=== PATIENT | female | born 1990 | race Two or more races ===

== ENCOUNTER 2024-05-31 10:28 | Emergency (ER) | payer OTHER ==
[~2024-05-31] VITALS: Ht 157.5 cm; Wt 81.6 kg
[2024-05-31 12:21] LABS: HEMATOCRIT 39.3 % (36.0-45.00); MEAN CELL VOLUME 88.4 fL (80.00-100.00); MEAN CORPUSCULAR HEMOGLOBIN 29.3 pg (27.00-32.0); MEAN CORPUSCULAR HGB CONC 33.1 g/dl (32.0-36.0); PLATELET COUNT 340 K/uL (150-450); RED BLOOD COUNT 4.44 M/uL (4.00-6.00); RED CELL DISTRIBUTION WIDTH 13.3 % (11.5-14.5)
[2024-05-31 12:33] LABS: URINE APPEARANCE Clear; URINE BILIRRUBIN Negative (NEGATIVE); URINE BLOOD Moderate; URINE COLOR Yellow; URINE GLUCOSE Negative (NEGATIVE); URINE KETONE Negative (NEGATIVE); URINE LEUKOCYTE Negative; URINE NITRATE Negative; URINE PROTEIN Negative (NEGATIVE); URINE UROBILINOGEN 0.2 E.U./dl
[2024-05-31 12:36] LABS: URINE BACTERIA 332.8 uL (0.0-1933); URINE EPITHELIAL CELLS 8.5 uL (0.0-38.8); URINE RBC 34.7 uL (0.0-20.8); URINE WBC 5.8 uL (0.0-23.2)
[2024-05-31 14:01] LABS: CALCIUM 9.4 mg/dL (8.5-10.1); CREATININE SERUM 0.58 mg/dL (0.55-1.02); GFR 120.47; POTASSIUM 4.04 mEq/L (3.5-5.1)
== END 2024-05-31 15:09 | disposition home or self-care (01) ==
LOC: ER 10:30
PROVIDERS: General Practice
DX: O20.8 Other hemorrhage in early pregnancy (principal); Z3A.09 9 weeks gestation of pregnancy; N93.9 Abnormal uterine and vaginal bleeding, unspecified

== ENCOUNTER 2024-06-21 08:06 | Outpatient (CLI) | payer OTHER | END 2024-06-21 08:08 | disposition home or self-care (01) | LOC: PRENATAL 08:06 | PROVIDERS: ATTEND Obstetrics & Gynecology Maternal & Fetal Medicine | DX: O36.80X0 Pregnancy with inconclusive fetal viability, not applicable or unspecified (principal); Z36.82 Encounter for antenatal screening for nuchal translucency; Z3A.11 11 weeks gestation of pregnancy ==

== ENCOUNTER 2024-08-17 15:36 | Outpatient (CLI) | payer OTHER | END 2024-08-17 15:37 | disposition home or self-care (01) | LOC: PRENATAL 15:36 | PROVIDERS: ATTEND Obstetrics & Gynecology Maternal & Fetal Medicine | DX: O44.00 Complete placenta previa NOS or without hemorrhage, unspecified trimester (principal); Z3A.20 20 weeks gestation of pregnancy ==

== ENCOUNTER → 2024-10-13 12:02 | Outpatient (CLI) | payer OTHER | END | disposition home or self-care (01) | LOC: PRENATAL 12:02 | PROVIDERS: ATTEND Obstetrics & Gynecology Maternal & Fetal Medicine | DX: O26.849 Uterine size-date discrepancy, unspecified trimester (principal); O36.8199 Decreased fetal movements, unspecified trimester, other fetus; Z3A.29 29 weeks gestation of pregnancy ==

== ENCOUNTER 2024-12-15 16:55 | Inpatient (IN) | payer OTHER ==
[~2024-12-15] VITALS: Ht 157.5 cm; Wt 100.7 kg
[2024-12-15 15:58] VITALS: BP 128/84
[2024-12-15] MEDS ORDERED: RINGERS SOLUTION,LACTATED 1,000 ML IV SCH (17:15)
[2024-12-15] MEDS ORDERED: AMPICILLIN SOD500 MG IV (17:29)
[2024-12-15 17:38] LABS: BASO % 0.4 % (0.1-1.2); EOS # 0.19 (0.04-0.54); EOS % 1.4 % (0.7-7.0); LYMPH # 1.77 (1.18-3.74); LYMPH % 13.3 % (19.3-53.1); MEAN PLATELET VOLUME 9.60 fl (9.4-12.4); MONO # 0.91 (0.24-0.82); MONO % 6.9 % (4.7-12.5); NEUT # 10.31 (1.56-6.13); NEUT % 77.6 % (34.0-71.1); RED CELL DISTRIBUTION WIDTH 13.3 % (11.6-14.4)
[2024-12-15 17:52] LABS: URINE APPEARANCE Clear; URINE BILIRRUBIN Negative (NEGATIVE); URINE BLOOD Negative; URINE COLOR Yellow; URINE GLUCOSE Negative (NEGATIVE); URINE KETONE Negative (NEGATIVE); URINE LEUKOCYTE Moderate; URINE NITRATE Negative; URINE PROTEIN Negative (NEGATIVE); URINE UROBILINOGEN 1.0 E.U./dl
[2024-12-15 17:56] LABS: URINE BACTERIA 165.6 uL (0.0-1933); URINE EPITHELIAL CELLS 39.8 uL (0.0-38.8); URINE RBC 8.7 uL (0.0-20.8); URINE WBC 31.5 uL (0.0-23.2)
[2024-12-15 17:57] LABS: INR < 0.93
[2024-12-15 17:58] LABS: URINE CAST 0.00 uL (0.0-1.40)
[2024-12-15 18:12] LABS: ALT/SGPT 108.0 U/L (12-78); AST/SGOT 59.0 U/L (15-37); BILIRUBIN TOTAL 0.36 mg/dL (0.3-1.2); BUN CREA RATIO 17.0 (7.0-25.0); CREATININE SERUM 0.54 mg/dL (0.55-1.02); GFR 130.83; GLOBULINA 4.1 G/DL (2.4-3.5); GLUCOSE FASTING 81.0 mg/dL (65-100); OSMOLALITY SERUM 275.0 MOSM/KG (275-295)
[2024-12-15 19:28] VITALS: BP 99/67
[2024-12-15] MEDS ORDERED: CEFAZOLIN SODIUM 1,000 MG VIAL IV SCH (20:15)
[2024-12-15 22:40] VITALS: BP 99/67
[2024-12-15 23:16] VITALS: BP 125/76
[2024-12-16] MEDS ORDERED: KETOROLAC TROMETHAMINE 60 MG VIAL IM ONE (01:30)
[2024-12-16] MEDS ORDERED: MORPHINE SULFATE 4 MG/ML CARTRIDGE IV SCH (01:30)
[2024-12-16] MEDS ORDERED: MORPHINE SULFATE 4 MG/ML VIAL IV ONE ×2 (01:50→02:20)
[2024-12-16 04:13] VITALS: BP 126/82
[2024-12-16] MEDS ORDERED: DOCUSATE SODIUM 100MG CAP PO NR (07:00)
[2024-12-16 07:23] LABS: BASO % 0.2 % (0.1-1.2); EOS # 0.10 (0.04-0.54); EOS % 0.6 % (0.7-7.0); LYMPH # 1.66 (1.18-3.74); LYMPH % 10.7 % (19.3-53.1); MEAN PLATELET VOLUME 9.20 fl (9.4-12.4); MONO # 1.11 (0.24-0.82); MONO % 7.1 % (4.7-12.5); NEUT # 12.58 (1.56-6.13); NEUT % 80.9 % (34.0-71.1); RED CELL DISTRIBUTION WIDTH 13.2 % (11.6-14.4)
[2024-12-16 08:00] VITALS: BP 121/83
[2024-12-16] MEDS ORDERED: ACETAMINOPHEN 325 MG TABLET PO SCH (08:00)
[2024-12-16] MEDS ORDERED: OxyCODONE HCL 5 MG TABLET (ROXICODONE) PO SCH (08:00)
[2024-12-16] MEDS ORDERED: SIMETHICONE 125 MG CAPSULE PO SCH (09:00)
[2024-12-16 16:00] VITALS: BP 126/84
[2024-12-16 20:00] VITALS: BP 117/76
[2024-12-16 23:48] VITALS: BP 117/76
[2024-12-17 03:00] VITALS: BP 119/82
[2024-12-17 08:00] VITALS: BP 133/85
[2024-12-17 16:30] VITALS: BP 121/84
[2024-12-17 21:00] VITALS: BP 120/79
[2024-12-18 01:50] VITALS: BP 122/78
[2024-12-18 08:42] VITALS: BP 123/75
[2024-12-18] MEDS ORDERED: IBU800 MG PO (11:12)
[2024-12-18] MEDS ORDERED: COLACE100 MG PO (11:12)
== END 2024-12-18 13:56 | disposition home or self-care (01) | DRG 788 ==
LOC: OBS/DEL 16:55 → OB/GYN 22:45 → LDR 22:45 → OB/GYN 12-16 01:43
PROVIDERS: Specialist; ADMIT Obstetrics & Gynecology; ATTEND Obstetrics & Gynecology
PROC: 4A1HXCZ Monitoring of Products of Conception, Cardiac Rate, External Approach (ICD-10-PCS; 2024-12-15)
PROC: 10D00Z1 Extraction of Products of Conception, Low, Open Approach (ICD-10-PCS; principal; 2024-12-16)
DX: O76 Abnormality in fetal heart rate and rhythm complicating labor and delivery (principal); O36.8330 Maternal care for abnormalities of the fetal heart rate or rhythm, third trimester, not applicable or unspecified; Z3A.37 37 weeks gestation of pregnancy; Z37.0 Single live birth